=== PATIENT | female | born 1955 | race Caucasian/White ===

== ENCOUNTER 2019-07-28 08:00 | Outpatient (CLI) | payer OTHER ==
[~2019-07-28 08:00] MED LIST: ATENOLOL100 MG PO; HUMULIN 70/30 V10 ML; NOVOLIN N100 UNITS/ IJ; SYNTHROID150 MCG; ZOLOFT100 MG PO
== END 2019-07-28 15:00 | disposition home or self-care (01) ==
LOC: LAB 08:00
DX: I10 Essential (primary) hypertension (principal); E11.9 Type 2 diabetes mellitus without complications; E03.8 Other specified hypothyroidism; E78.2 Mixed hyperlipidemia; Z12.11 Encounter for screening for malignant neoplasm of colon; M81.0 Age-related osteoporosis without current pathological fracture; E55.9 Vitamin D deficiency, unspecified; J44.9 Chronic obstructive pulmonary disease, unspecified; M46.47 Discitis, unspecified, lumbosacral region; M19.91 Primary osteoarthritis, unspecified site

== ENCOUNTER 2019-07-28 09:53 | Outpatient (CLI) | payer OTHER | END 2019-07-28 10:03 | disposition home or self-care (01) | LOC: NUCLEAR 09:53 | DX: J44.9 Chronic obstructive pulmonary disease, unspecified (principal); I10 Essential (primary) hypertension ==

== ENCOUNTER → 2019-08-04 | Outpatient (CLI) | payer OTHER | END | disposition home or self-care (01) | LOC: NUCLEAR 07:00 | DX: R07.89 Other chest pain (principal); I10 Essential (primary) hypertension ==

== ENCOUNTER 2019-08-18 07:31 | Outpatient (CLI) | payer OTHER | END 2019-08-18 07:55 | disposition home or self-care (01) | LOC: NUCLEAR 07:31 | DX: R07.89 Other chest pain (principal); I10 Essential (primary) hypertension; J44.9 Chronic obstructive pulmonary disease, unspecified; I25.10 Atherosclerotic heart disease of native coronary artery without angina pectoris | CPT/HCPCS: 78452; 93017; A9500; J0153 ==

== ENCOUNTER 2020-10-08 18:55 | Emergency (ER) | payer OTHER ==
[~2020-10-08] VITALS: Ht 160 cm; Wt 65.8 kg
== END 2020-10-08 23:10 | disposition home or self-care (01) ==
LOC: ER 18:55
DX: S50.312A Abrasion of left elbow, initial encounter (principal); S40.012A Contusion of left shoulder, initial encounter; W18.09XA Striking against other object with subsequent fall, initial encounter; Y93.89 Activity, other specified; Y92.413 State road as the place of occurrence of the external cause; Y99.8 Other external cause status

== ENCOUNTER → 2020-12-05 | Outpatient (CLI) | payer OTHER | END | disposition home or self-care (01) | LOC: NUCLEAR 14:10 | PROVIDERS: ATTEND Internal Medicine Cardiovascular Disease | DX: I67.89 Other cerebrovascular disease (principal) ==

== ENCOUNTER 2021-06-02 07:12 | Outpatient (CLI) | payer OTHER | END 2021-06-02 07:18 | disposition home or self-care (01) | LOC: NUCLEAR 07:12 | PROVIDERS: ATTEND Internal Medicine Cardiovascular Disease | DX: R07.89 Other chest pain (principal) | CPT/HCPCS: 78452; 93017; A9500; J0153 ==

== ENCOUNTER 2024-05-29 08:03 | Outpatient (CLI) | payer OTHER | END 2024-05-29 08:13 | disposition home or self-care (01) | LOC: SONOGRAMA 08:03 | PROVIDERS: ATTEND Internal Medicine Cardiovascular Disease | DX: R10.9 Unspecified abdominal pain (principal); M46.47 Discitis, unspecified, lumbosacral region ==

== ENCOUNTER → 2025-07-16 07:24 | Outpatient (CLI) | payer OTHER | END | disposition home or self-care (01) | LOC: NUCLEAR 07:00 | PROVIDERS: ATTEND Internal Medicine | DX: I25.110 Atherosclerotic heart disease of native coronary artery with unstable angina pectoris (principal) | CPT/HCPCS: 78452; 93017; A9500; J0153 ==

== ENCOUNTER 2025-07-28 10:46 | Outpatient (CLI) | payer OTHER | END 2025-07-28 10:48 | disposition home or self-care (01) | LOC: SONOGRAMA 10:46 | PROVIDERS: ATTEND Internal Medicine Endocrinology, Diabetes & Metabolism | DX: E04.8 Other specified nontoxic goiter (principal) ==

== ENCOUNTER 2025-11-22 09:41 | Outpatient (CLI) | payer OTHER | END 2025-11-22 09:44 | disposition home or self-care (01) | LOC: MAMO-SONO 09:41 | PROVIDERS: ATTEND Internal Medicine Cardiovascular Disease | DX: N60.11 Diffuse cystic mastopathy of right breast (principal); N60.12 Diffuse cystic mastopathy of left breast; Z12.31 Encounter for screening mammogram for malignant neoplasm of breast ==